=== PATIENT | male | born 1955 | race Caucasian/White ===

== ENCOUNTER 2019-05-04 21:40 | Emergency (ER) | payer BC, OTHER ==
[~2019-05-04] VITALS: Ht 177.8 cm; Wt 83.8 kg
[~2019-05-04 21:40] MED LIST: AMLO10TA8 PO; AMOX1TAB12 PO; ASPI-496 PO; ATEN1TAB3 PO; CHLO25TA PO; CLOP75TA52 PO; CYCL5TAB PO; DOXA2TAB9 PO; DOXY100C15 PO; GABA800T5 PO; INSU100I13 SQ-INSULIN; INSU100I15 SC; LATA2.5D3 EACHEYE; LOSA100T14 PO; METF500T17 PO; NAPR-685 PO; NITR100C PO; OXYC-302 PO; PRED-402 PO; RANI150T4 PO
[2019-05-04 21:42] VITALS: BP 140/68
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
[2019-05-04] MEDS ORDERED: KETOROLAC 30 MG/1 ML ONE (22:24)
[2019-05-04] MEDS ORDERED: KETOROLAC 30 MG/1 ML IM ONE (22:30)
== END 2019-05-04 23:15 | disposition home or self-care (01) ==
LOC: ED 22:44
DX: S52.522A Torus fracture of lower end of left radius, initial encounter for closed fracture (principal); I10 Essential (primary) hypertension; E11.9 Type 2 diabetes mellitus without complications; F12.10 Cannabis abuse, uncomplicated; F17.210 Nicotine dependence, cigarettes, uncomplicated; W01.0XXA Fall on same level from slipping, tripping and stumbling without subsequent striking against object, initial encounter; Y93.89 Activity, other specified; Y92.69 Other specified industrial and construction area as the place of occurrence of the external cause; Y99.8 Other external cause status
CPT/HCPCS: 29125; 73110; 96372; 99283; J1885

== ENCOUNTER 2019-05-06 12:56 | Emergency (ER) | payer OTHER ==
[~2019-05-06] VITALS: Ht 177.8 cm; Wt 84.2 kg
[2019-05-06 13:00] VITALS: BP 148/63
== END 2019-05-06 13:52 | disposition home or self-care (01) ==
LOC: ED 13:32
DX: M25.532 Pain in left wrist (principal); Z76.0 Encounter for issue of repeat prescription
CPT/HCPCS: 99283